=== PATIENT | male | born 1980 | race Caucasian/White ===

== ENCOUNTER 2017-06-11 20:12 | Emergency (ER) | payer BC | END 2017-06-11 23:33 | disposition left against medical advice (07) | LOC: FTE 23:33 → E/R 20:12 | DX: Z53.21 Procedure and treatment not carried out due to patient leaving prior to being seen by health care provider (principal) ==

== ENCOUNTER 2018-03-18 19:22 | Emergency (ER) | payer BC ==
[2018-03-18 20:22] LABS: ADD MAN DIFF? NO
[2018-03-18 20:24] LABS: WHITE BLOOD COUNT 16.1 10^3/ul (4.8-10.8)
[2018-03-18 20:25] LABS: BASOPHIL # 0.1 10^3/ul (0.0-0.1); BASOPHILS % 0.6 % (0.0-2.0); EOSINOPHILS # 0.7 10^3/ul (0.0-0.5); EOSINOPHILS % 4.3 % (0.0-7.0); HEMATOCRIT 47.1 % (42.0-52.0); HEMOGLOBIN 14.9 g/dl (14.0-18.0); LYMPHOCYTES # 3.8 10^3/ul (0.8-2.9); LYMPHOCYTES % 23.8 % (15.0-51.0); MEAN CORPUSCULAR HEMOGLOBIN 25.1 pg (29.0-33.0); MEAN CORPUSCULAR HGB CONC 31.6 g/dl (32.0-37.0); MEAN CORPUSCULAR VOLUME 79.3 fl (82.0-101.0); MEAN PLATELET VOLUME 9.2 fl (7.4-10.4); MONOCYTE # 1.2 10^3/ul (0.3-0.9); MONOCYTES % 7.2 % (0.0-11.0); NEUTROPHIL # 10.2 10^3/ul (1.6-7.5); NEUTROPHILS % 63.6 % (39.0-77.0); PLATELET COUNT 317 10^3/UL (140-415); RED BLOOD COUNT 5.94 10^6/ul (4.70-6.10); RED CELL DISTRIBUTION WIDTH 15.2 % (11.5-14.5)
[2018-03-18] MEDS: IBUPROFEN 800 MG TAB PO (20:32)
[2018-03-18 20:42] LABS: ANION GAP 8 (5-13); BLOOD UREA NITROGEN 16 mg/dl (7-20); CALCIUM 9.7 mg/dl (8.4-10.2); CARBON DIOXIDE 26 mmol/L (21-31); CHLORIDE 107 mmol/L (97-110); CREATININE 0.81 mg/dl (0.61-1.24); Estimated GFR > 60 mL/min (>60); GLUCOSE 101 mg/dl (70-220); POTASSIUM 4.3 mmol/L (3.5-5.1); SODIUM 141 mmol/L (135-144)
[2018-03-18 20:54] LABS: TROPONIN-I < 0.012 ng/ml (0.000-0.120)
== END 2018-03-18 21:14 | disposition home or self-care (01) ==
LOC: E/R 19:22
DX: R76.11 Nonspecific reaction to tuberculin skin test without active tuberculosis (principal); I10 Essential (primary) hypertension; F17.210 Nicotine dependence, cigarettes, uncomplicated
CPT/HCPCS: 36415; 71045; 80048; 84484; 85025; 93005; 99285-25